=== PATIENT | female | born 1965 | race Caucasian/White ===

== ENCOUNTER 2018-08-06 11:44 | Emergency (ER) | payer OTHER ==
[~2018-08-06] VITALS: Ht 160 cm; Wt 65.8 kg
[~2018-08-06 11:44] MED LIST: ALBU0.0912 IH; HYDR12.5 PO; MONT10TA35 PO; OMEP20EC9 PO; OMEP20TC10 PO; RANI-287 PO
[2018-08-06 11:53] VITALS: BP 131/84
--- NOTE | 2018-08-06 11:53 | NUR ---
PT BIBA C/O SIEZURE. PER [facility] PT HAD 1 UNWITNESSED SIEZURE AT HOME, 1 WITNESSED SIEZURE AT NEIGHBORS HOUSE, AND 1 SIEZURE WITH [facility]. BOTH WITNESSED SIEZURE TONIC CLONIC LASTING APPROXIAMATELTY 1 MIN. PT REPORTS LOWER BACK PAIN FROM FALL DUE TO FIRST SIEZURE, DENIES HEAD PAIN. AAOX3, COOPERATIVE, PERRLA, GCS 15, HAND BOX COVERER HAND EQUAL/STRONG, FACIAL SYMMETRY INTACT. BS 94. PT ADMITIS TO DRINKING 1 25OZ BEER TODAY. VSS. ER MD TO SEE PT. MEDHX:COPD, SIEZURE RX:KEPPRA, AND INHALER
--- NOTE | 2018-08-06 12:10 | NUR ---
JUD CANALES HELPED PT ON BED LLOYD TO PROVIDE URINE SAMPLE, PT ALSO PROVIDED WITH ICE PACK FOR BACK PAIN
--- NOTE | 2018-08-06 13:04 | NUR ---
JUD CANALES PROVIDED BED LLOYD FOR PT TO USE.
[2018-08-06] MEDS ORDERED: KETOROLAC 30 MG/ML VIAL IVP ONE (13:15)
--- NOTE | 2018-08-06 13:18 | NUR ---
PT GOING TO X-RAY AT THIS TIME.
--- NOTE | 2018-08-06 13:31 | NUR ---
PT RETURNED FOR X-RAY AT THIS TIME.
[2018-08-06 15:23] VITALS: BP 105/53
== END 2018-08-06 15:23 | disposition home or self-care (01) ==
LOC: MED 11:44
DX: S30.0XXA Contusion of lower back and pelvis, initial encounter (principal); R56.9 Unspecified convulsions; F10.10 Alcohol abuse, uncomplicated; J06.9 Acute upper respiratory infection, unspecified; F17.210 Nicotine dependence, cigarettes, uncomplicated; Z85.038 Personal history of other malignant neoplasm of large intestine; J44.9 Chronic obstructive pulmonary disease, unspecified; I10 Essential (primary) hypertension; Z87.442 Personal history of urinary calculi; Z90.49 Acquired absence of other specified parts of digestive tract; Z79.899 Other long term (current) drug therapy; Z88.6 Allergy status to analgesic agent; Z88.5 Allergy status to narcotic agent; W18.39XA Other fall on same level, initial encounter; Y93.89 Activity, other specified; Y92.89 Other specified places as the place of occurrence of the external cause; Y99.8 Other external cause status
CPT/HCPCS: 72100; 72220; 96372; 99283; J1885